=== PATIENT | male | born 1985 | race Caucasian/White ===

== ENCOUNTER 2016-03-12 12:44 | Emergency (ER) | payer OTHER ==
[2016-03-12 13:27] VITALS: RESP 17; TEMP 98.3
--- NOTE | 2016-03-12 15:09 | DI ---
LEFT HAND, 03/12/2016 1:07 PM: Clinical History: Trauma. Previous Exam: None at this facility. 3 views are submitted. There is no acute soft tissue, osseous, or joint abnormality. Views of the wri st are also normal. Reading: Normal left hand exam.
--- NOTE | 2016-03-12 15:10 | DI ---
LUMBAR SPINE SERIES, 03/12/2016 1:08 PM: Clinical History: Trauma. Previous Exam: None at this facility. Upright AP and lateral views are submitted. The vertebral bodies are of normal height and size. No fr actures are identified. There is mild L5-S1 disc space narrowing. The remaining disc spaces are of no rmal height. The pedicles and posterior elements are unremarkable. Both SI joints are normal. Readin. No acute fracture is identified. 2. Mild L5-S1 disc space narrowing.
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
== END 2016-03-12 14:32 | disposition home or self-care (01) ==
LOC: ER 12:44
DX: S60.222A Contusion of left hand, initial encounter (principal); M48.07 Spinal stenosis, lumbosacral region; M54.5 Low back pain; V64.5XXA Driver of heavy transport vehicle injured in collision with heavy transport vehicle or bus in traffic accident, initial encounter; Y92.411 Interstate highway as the place of occurrence of the external cause
CPT/HCPCS: 72100; 73130; 99283